=== PATIENT | female | born 1990 | race Two or more races ===

== ENCOUNTER 2018-04-16 22:40 | Emergency (ER) | payer MEDICAID, OTHER ==
[~2018-04-16] VITALS: Ht 157.5 cm; Wt 94.8 kg
[2018-04-17 04:58] VITALS: BP 118/62
[2018-04-17 12:34] LABS: Urine Bacteria NONE SEEN /hpf (None Seen); Urine Blood TRACE /uL (Negative); Urine Specific Gravity 1.003 (1.001-1.035); Urine WBC <1 /hpf (0 - 5)
== END 2018-04-17 13:04 | disposition home or self-care (01) ==
LOC: ER 22:40
CPT/HCPCS: 36415; 76801; 76817; 81001; 84702